=== PATIENT | male | born 1980 | race Asian ===

== ENCOUNTER → 2018-12-01 | Outpatient (CLI) | payer BC | LOC: HYPER 11-27 13:25 | DX: T81.89XA Other complications of procedures, not elsewhere classified, initial encounter (principal); E11.622 Type 2 diabetes mellitus with other skin ulcer; L89.512 Pressure ulcer of right ankle, stage 2; L97.311 Non-pressure chronic ulcer of right ankle limited to breakdown of skin; E11.621 Type 2 diabetes mellitus with foot ulcer; L89.893 Pressure ulcer of other site, stage 3; L97.512 Non-pressure chronic ulcer of other part of right foot with fat layer exposed; Y92.89 Other specified places as the place of occurrence of the external cause; Y83.8 Other surgical procedures as the cause of abnormal reaction of the patient, or of later complication, without mention of misadventure at the time of the procedure ==

== ENCOUNTER → 2018-12-08 | Outpatient (CLI) | payer BC | LOC: HYPER 06:59 | DX: E11.622 Type 2 diabetes mellitus with other skin ulcer (principal); L97.311 Non-pressure chronic ulcer of right ankle limited to breakdown of skin; L89.513 Pressure ulcer of right ankle, stage 3; E11.621 Type 2 diabetes mellitus with foot ulcer; L97.511 Non-pressure chronic ulcer of other part of right foot limited to breakdown of skin; L89.893 Pressure ulcer of other site, stage 3; L84 Corns and callosities; B35.1 Tinea unguium ==

== ENCOUNTER → 2018-12-15 | Outpatient (CLI) | payer BC | LOC: HYPER 06:40 | DX: E11.621 Type 2 diabetes mellitus with foot ulcer (principal); L89.893 Pressure ulcer of other site, stage 3; L97.511 Non-pressure chronic ulcer of other part of right foot limited to breakdown of skin; E11.622 Type 2 diabetes mellitus with other skin ulcer; L89.512 Pressure ulcer of right ankle, stage 2; L97.311 Non-pressure chronic ulcer of right ankle limited to breakdown of skin ==

== ENCOUNTER → 2018-12-29 | Outpatient (CLI) | payer BC, OTHER | LOC: HYPER 06:36 | DX: T81.89XA Other complications of procedures, not elsewhere classified, initial encounter (principal); E11.621 Type 2 diabetes mellitus with foot ulcer; L89.893 Pressure ulcer of other site, stage 3; L97.511 Non-pressure chronic ulcer of other part of right foot limited to breakdown of skin; S80.811D Abrasion, right lower leg, subsequent encounter; L89.610 Pressure ulcer of right heel, unstageable; L97.411 Non-pressure chronic ulcer of right heel and midfoot limited to breakdown of skin; L84 Corns and callosities; B35.1 Tinea unguium; X58.XXXD Exposure to other specified factors, subsequent encounter; Y92.89 Other specified places as the place of occurrence of the external cause; Y83.8 Other surgical procedures as the cause of abnormal reaction of the patient, or of later complication, without mention of misadventure at the time of the procedure ==

== ENCOUNTER → 2019-01-07 | Outpatient (CLI) | payer BC, OTHER | LOC: HYPER 06:34 | DX: T81.89XD Other complications of procedures, not elsewhere classified, subsequent encounter (principal); E11.621 Type 2 diabetes mellitus with foot ulcer; L89.893 Pressure ulcer of other site, stage 3; L97.511 Non-pressure chronic ulcer of other part of right foot limited to breakdown of skin; L97.411 Non-pressure chronic ulcer of right heel and midfoot limited to breakdown of skin; L89.610 Pressure ulcer of right heel, unstageable; L84 Corns and callosities; B35.1 Tinea unguium; Y83.8 Other surgical procedures as the cause of abnormal reaction of the patient, or of later complication, without mention of misadventure at the time of the procedure ==

== ENCOUNTER → 2019-01-12 | Outpatient (CLI) | payer BC, OTHER | LOC: HYPER 07:02 | DX: T81.89XD Other complications of procedures, not elsewhere classified, subsequent encounter (principal); E11.621 Type 2 diabetes mellitus with foot ulcer; L89.893 Pressure ulcer of other site, stage 3; L97.811 Non-pressure chronic ulcer of other part of right lower leg limited to breakdown of skin; L89.610 Pressure ulcer of right heel, unstageable; L97.411 Non-pressure chronic ulcer of right heel and midfoot limited to breakdown of skin; L84 Corns and callosities; B35.1 Tinea unguium; Y83.8 Other surgical procedures as the cause of abnormal reaction of the patient, or of later complication, without mention of misadventure at the time of the procedure ==

== ENCOUNTER → 2019-03-11 | Outpatient (CLI) | payer BC, OTHER | LOC: HYPER 01-26 12:39 | DX: T81.49XD Infection following a procedure, other surgical site, subsequent encounter (principal); E11.9 Type 2 diabetes mellitus without complications; Z79.84 Long term (current) use of oral hypoglycemic drugs; Y83.8 Other surgical procedures as the cause of abnormal reaction of the patient, or of later complication, without mention of misadventure at the time of the procedure ==

== ENCOUNTER → 2019-03-24 | Outpatient (CLI) | payer BC, OTHER | LOC: HYPER 06:51 | DX: T81.49XD Infection following a procedure, other surgical site, subsequent encounter (principal); E11.9 Type 2 diabetes mellitus without complications; Z79.84 Long term (current) use of oral hypoglycemic drugs; Y83.8 Other surgical procedures as the cause of abnormal reaction of the patient, or of later complication, without mention of misadventure at the time of the procedure ==

== ENCOUNTER → 2019-04-08 | Outpatient (CLI) | payer BC, OTHER | LOC: HYPER 06:51 | DX: T81.49XD Infection following a procedure, other surgical site, subsequent encounter (principal); E11.9 Type 2 diabetes mellitus without complications; Z79.84 Long term (current) use of oral hypoglycemic drugs; Y83.8 Other surgical procedures as the cause of abnormal reaction of the patient, or of later complication, without mention of misadventure at the time of the procedure ==

== ENCOUNTER → 2019-04-23 | Outpatient (CLI) | payer BC, OTHER | LOC: HYPER 06:49 | DX: T81.49XD Infection following a procedure, other surgical site, subsequent encounter (principal); L84 Corns and callosities; B35.1 Tinea unguium; Z79.84 Long term (current) use of oral hypoglycemic drugs; Y83.8 Other surgical procedures as the cause of abnormal reaction of the patient, or of later complication, without mention of misadventure at the time of the procedure ==

== ENCOUNTER → 2019-05-05 | Outpatient (CLI) | payer BC, OTHER | LOC: HYPER 06:33 | DX: T81.49XD Infection following a procedure, other surgical site, subsequent encounter (principal); E11.9 Type 2 diabetes mellitus without complications; L84 Corns and callosities; B35.1 Tinea unguium; Z79.84 Long term (current) use of oral hypoglycemic drugs; Y83.8 Other surgical procedures as the cause of abnormal reaction of the patient, or of later complication, without mention of misadventure at the time of the procedure ==

== ENCOUNTER → 2019-05-14 | Outpatient (CLI) | payer BC, OTHER | LOC: HYPER 07:44 | DX: S81.801D Unspecified open wound, right lower leg, subsequent encounter (principal); E11.628 Type 2 diabetes mellitus with other skin complications; Z79.84 Long term (current) use of oral hypoglycemic drugs; X58.XXXD Exposure to other specified factors, subsequent encounter ==

== ENCOUNTER → 2019-05-21 | Outpatient (CLI) | payer BC, OTHER | LOC: HYPER 12:13 | DX: T81.49XD Infection following a procedure, other surgical site, subsequent encounter (principal); L84 Corns and callosities; E11.9 Type 2 diabetes mellitus without complications; B35.1 Tinea unguium; Z79.84 Long term (current) use of oral hypoglycemic drugs; Y83.8 Other surgical procedures as the cause of abnormal reaction of the patient, or of later complication, without mention of misadventure at the time of the procedure ==

== ENCOUNTER → 2019-06-03 | Outpatient (CLI) | payer BC, OTHER | LOC: HYPER 05-28 17:17 | DX: T81.49XD Infection following a procedure, other surgical site, subsequent encounter (principal); E11.9 Type 2 diabetes mellitus without complications; Z79.84 Long term (current) use of oral hypoglycemic drugs; Y83.8 Other surgical procedures as the cause of abnormal reaction of the patient, or of later complication, without mention of misadventure at the time of the procedure ==

== ENCOUNTER → 2019-06-23 | Outpatient (CLI) | payer BC, OTHER | LOC: HYPER 15:51 | DX: T81.49XD Infection following a procedure, other surgical site, subsequent encounter (principal); E11.9 Type 2 diabetes mellitus without complications; Z79.84 Long term (current) use of oral hypoglycemic drugs; Y83.8 Other surgical procedures as the cause of abnormal reaction of the patient, or of later complication, without mention of misadventure at the time of the procedure ==

== ENCOUNTER → 2019-07-22 | Outpatient (CLI) | payer BC, OTHER | LOC: HYPER 15:11 | DX: T81.49XD Infection following a procedure, other surgical site, subsequent encounter (principal); E11.9 Type 2 diabetes mellitus without complications; Z79.84 Long term (current) use of oral hypoglycemic drugs; Y83.8 Other surgical procedures as the cause of abnormal reaction of the patient, or of later complication, without mention of misadventure at the time of the procedure ==

== ENCOUNTER → 2020-04-04 | Outpatient (CLI) | payer BC, OTHER | LOC: HYPER 09:40 | PROVIDERS: ATTEND Emergency Medicine Emergency Medical Services | DX: L03.115 Cellulitis of right lower limb (principal); R21 Rash and other nonspecific skin eruption; E11.9 Type 2 diabetes mellitus without complications; E66.01 Morbid (severe) obesity due to excess calories; Z79.84 Long term (current) use of oral hypoglycemic drugs; Z68.41 Body mass index [BMI] 40.0-44.9, adult ==